=== PATIENT | male | born 1995 | race Caucasian/White ===

== ENCOUNTER → 2017-10-02 | Outpatient (REF) | payer OTHER, MEDICAID ==
[2017-10-02 13:05] LABS: HEMOGLOBIN 13.2 g/dl (13.5-17.5); MEAN CORPUSCULAR HEMOGLOBIN 29.2 pg (27.0-33.0); MEAN CORPUSCULAR VOLUME 88.5 fl (80.0-96.0); PLATELET COUNT, AUTOMATED 278 10^3/uL (150-450); RED BLOOD COUNT 4.52 10^6/uL (4.30-6.10); RED CELL DISTRIBUTION WIDTH 13.3 % (11.5-14.5); WHITE BLOOD COUNT 9.7 10^3/uL (4.0-10.0)
[2017-10-02 13:12] LABS: ADD MANUAL DIFFER YES; DIFF SLIDE NUMBER 229; POSITIVE DIFF POS FLAG
[2017-10-02 13:29] LABS: BASOPHILS 1 % (0-4); EOSINOPHILS 4 % (0-5); LYMPHOCYTES 42 % (16-52); MONOCYTES 5 % (0-8); NEUTROPHILS 48 % (35-75); PLATELET ESTIMATE NORMAL (NORMAL)
[2017-10-02 13:55] LABS: CHOLESTEROL LEVEL 132 MG/DL (<200); CHOLESTEROL RISK RATIO 2.315 (<5); HDL CHOLESTEROL 57 MG/DL (>40); LDL CHOLESTEROL 65.2 MG/DL (<100); NON-HDL-C 75 MG/DL; TRIGLYCERIDES LEVEL 49 MG/DL (<150)
[2017-10-02 15:19] LABS: ESTIMATED AVERAGE GLUCOSE 100 MG/DL (60-110); HEMOGLOBIN A1c 5.1 %
[2017-10-04 09:48] LABS: TOTAL 25(OH) VITAMIN D 11.5 NG/ML (30.0-100.0)
== END ==
LOC: M LAB REF 11:27
DX: Z13.9 Encounter for screening, unspecified (principal)
CPT/HCPCS: 84443

== ENCOUNTER → 2018-01-09 | Outpatient (REF) | payer OTHER, MEDICAID ==
[2018-01-09 18:15] LABS: TOTAL 25(OH) VITAMIN D 23.8 NG/ML (30.0-100.0)
== END ==
LOC: M LAB REF 16:26
DX: E55.9 Vitamin D deficiency, unspecified (principal)
CPT/HCPCS: 82306

== ENCOUNTER → 2018-01-21 | Outpatient (REF) | payer OTHER, MEDICAID ==
[2018-01-21 13:48] LABS: TOTAL 25(OH) VITAMIN D 15.4 NG/ML (30.0-100.0)
[2018-01-21 15:51] LABS: ESTIMATED AVERAGE GLUCOSE 97 MG/DL (60-110)
[2018-01-27 09:22] LABS: SUMMARY SEE SEPARATE REPORT
== END ==
LOC: M LAB REF 12:49
DX: F41.8 Other specified anxiety disorders (principal)